=== PATIENT | male | born 1940 | race Caucasian/White ===

== ENCOUNTER 2017-05-21 10:33 | Outpatient (CLI) | payer MEDICARE ==
[~2017-05-21] VITALS: Ht 172.7 cm; Wt 85.0 kg
--- NOTE | ~2017-05-21 | HEMODYNAMI ---
PATIENT:EDISON BALTAZAR MEDICAL RECORD: [id number] : 42 LOCATION:[facility] ADMISSION DATE: 05/21/17 Generatedon:05/21/201714:20 Patient name: EDISON BALTAZAR Patient #: [id number] SSN: : 1940 Date of study: 05/21/2017 Page: Of Hemodynamic Procedure Report Patient Data Patient Demographics Procedure consent was obtained First Name: EDISON Gender: Male Last Name: DELANEY : 1940 Middle Initial: G Age: 76 year(s) Patient #: [id number] Race: Unknown Additional ID: [id number] Contact details [address]: [address] [place] [address] State: [place] City: [place] Zip code: [address] Past Medical History Allergies Allergen Reaction Date Comments Reported Other allergy 05/21/2017 Atorvastatin, Iodinated Contrast, Simvastatin Admission Admission Data Admission Date: 05/21/2017 Admission Time: 10:33 Admit Source: Other Lab Results Lab Result Date: 05/21/2017 Lab Result Time: 0:00 Biochemistry Name Units Result Min Max BUN mg/dl 28 --(----)-* 7 18 Creatinine mg/dl 1.4 --(----)*- 0.6 1.3 CBC Name Units Result Min Max Hemoglobin g/dl 13.4 -*(----)-- 13.5 17.5 Procedure Procedure Types Cath Procedure Diagnostic Procedure C LH w/Coronaries Miscellaneous Procedures Moderate Sedation up to 45 minutes Procedure Description Procedure Date Procedure Date: 05/21/2017 Procedure Start Time: 13:39 Procedure End Time: 14:20 Procedure Staff Name Function Juan To MD Performing Physician Sanjeev Lu RT Scrub Kehinde Greene RN Nurse Henry Paul RT Monitor Gabbivalentine Padron RT Scrub Blake Tabares RT Monitor Procedure Data Cath Procedure Fluoroscopy Diagnostic fluoroscopy Total fluoroscopy Time: 9.1 time: 9.1 min min Diagnostic fluoroscopy Total fluoroscopy dose: dose: 1011 mGy 1011 mGy Contrast Material Contrast Material Type Amount (ml) Isovue 300 105 Entry Location Entry Primary Successful Side Size Upsize Upsize Entry Closure Mccann ccessful Closure Location (Fr) 1 (Fr) 2 (Fr) Remarks Device Remarks Radial Right 6 Fr Mechanical artery Short Compression Estimated blood loss: 10 ml Diagnostic catheters Device Type Used For End Catheter Placement Terumo 5Fr Desmond 110cm Procedure catheter Procedure Complications No complications Procedure Medications Medication Administration Route Dosage Oxygen NC 2 l/min Heparin Flush Bag added to field 2 bags (1000units/500ml NS) 0.9% NaCl I.V. 100 ml/hr Radial Cocktail added to field 1 syringe (Verapomil 2mg/Nitro 400mcg/Heparin 1500units) Fentanyl I.V. 50 mcg Versed I.V. 1 mg Radial Cocktail added to field 1 syringe (Verapomil 2mg/Nitro 400mcg/Heparin 1500units) Fentanyl I.V. 50 mcg Versed I.V. 1 mg Heparin Bolus I.V. 8500 units Fentanyl I.V. 50 mcg Fentanyl I.V. 50 mcg Hemodynamics Rest Heart Rate: 53 (bpm) Pressure Samples Time Site Value (mmHg) Purpose Heart Use Rate(bpm) 13:40 LV 112/4,11 Snapshot 53 Gradients Valve Time Site Site Mean SEP/DFP Peak To Heart Use 1 2 (mmHg) (sec/min) Peak Rate (mmHg) (bpm) Aortic 13:41 LV AO 81 Snapshots Pre Cath Intra NCS Post Cath Vital Signs Time Heart Resp SPO2 etCO2 IF2jhyd NIBP (mmHg) Rhythm Pain Sedation Rate (ipm) (%) (mmHg) (mmHg) Status Level (bpm) 13:23:18 52 17 97 0 0 182/80(147) NSR 0 (11) 10(A) , No pain 13:27:50 49 16 98 0 0 170/77(141) NSR 0 (11) 10(A) , No pain 13:32:21 51 19 99 0 0 142/69(122) NSR 0 (11) 10(A) , No pain 13:36:31 54 16 90 0 0 138/70(115) NSR 0 (11) 9(A) , No pain 13:40:53 52 18 85 0 0 105/57(69) NSR 0 (11) 9(A) , No pain 13:44:58 55 19 92 0 0 114/66(99) NSR 0 (11) 9(A) , No pain 13:49:08 57 19 95 0 0 131/66(86) NSR 0 (11) 9(A) , No pain 13:53:26 57 18 92 0 0 114/62(96) NSR 0 (11) 9(A) , No pain 13:57:36 55 18 97 0 0 133/64(112) NSR 0 (11) 9(A) , No pain 14:01:52 58 16 97 0 0 126/67(110) NSR 0 (11) 9(A) , No pain 14:06:08 53 18 99 0 0 142/62(115) NSR 0 (11) 9(A) , No pain 14:11:17 52 17 95 0 0 112/56(88) NSR 0 (11) 9(A) , No pain 14:15:25 52 17 95 0 0 132/67(104) NSR 0 (11) 9(A) , No pain 14:19:39 55 11 98 0 0 137/72(116) NSR 0 (11) 9(A) , No pain Medications Time Medication Route Dose Verified Delivered Reason Notes Effectiveness by by 13:19:27 Oxygen NC 2 l/min Kehinde Busby Per Jc Greene RN physician RN 13:21:45 Heparin Flush added 2 bags Kehinde Busby used for Bag to Jc Greene finish repairer (1000units/500ml field RN NS) 13:21:54 0.9% NaCl I.V. 100 Kehinde Busby Per ml/hr Jc Greene RN physician RN 13:22:04 Radial Cocktail added 1 Kehinde Kehinde used for (Verapomil to syringe Jc Greene RN procedure 2mg/Nitro field RN 400mcg/Heparin 1500units) 13:35:07 Fentanyl I.V. 50 mcg Kehinde Busby for sedation Jc Greene RN RN 13:35:16 Versed I.V. 1 mg Kehinde Busby for sedation Jc Greene RN RN 13:38:31 Radial Cocktail added 1 Kehinde Juan for (Verapomil to syringe Jc To MD vasodilation 2mg/Nitro field RN 400mcg/Heparin 1500units) 13:50:05 Fentanyl I.V. 50 mcg Kehinde Busby for sedation Jc Greene RN RN 13:50:10 Versed I.V. 1 mg Kehinde Busby for sedation Jc Greene RN RN 13:50:27 Heparin Bolus I.V. 8500 Kehinde Kehinde used for units Jc Greene finish repairer RN 14:05:44 Fentanyl I.V. 50 mcg Kehinde Kehinde for sedation Jc Greene RN RN 14:07:30 Fentanyl I.V. 50 mcg Kehinde Busby for sedation Jc Greene RN head filter tank tender helper Log Time Note 13:00:56 Sanjeev Lu RT(R) sent for patient. Start room use. 13:08:26 Informed consent obtained and on chart 13:08:32 Admit Source: Other 13:08:55 Diagnostic Cath status Elective 13:08:57 Time tracking: Regular hours 13:09:00 Plan of Care:Hemodynamics will remain stable., Cardiac rhythm will remain stable., Comfort level will be maintained., Respiratory function will remain adequate., Patient/ family verbilizes understanding of procedure., Procedure tolerated without complication., Recovers from procedure without complications.. 13:09:10 H&P Date Dictated: 05/17/2017 Within 30 days and on chart., H&P Addendum completed by physician on day of procedure. (MUST COMPLETE FOR ALL OUTPATIENTS). 13:14:05 Patient received from Pre/Post Procedure Room to CCL 1 Alert and oriented. Tansferred to table in Supine position. 13:14:08 Warm blankets applied, and mónica hugger turned on for patient comfort. 13:14:09 Correct patient and procedure confirmed by team. 13:14:09 ECG and BP/O2 sat monitors applied to patient. 13:14:11 Pre-procedure instructions explained to patient. 13:14:12 Pre-op teaching completed and patient verbalized understanding. 13:14:13 Family in waiting room. 13:14:15 Patient NPO since Midnight. 13:15:16 Patient allergic to Other allergyAtorvastatin, Iodinated Contrast, Simvastatin 13:15:18 Is the patient allergic to Iodine/contrast media? Yes. 13:15:19 Was the patient premedicated? Yes 13:19:27 Oxygen 2 l/min NC was administered by Kehinde Greene RN; Per physician; 13:21:20 Vital chart was started 13:21:45 Heparin Flush Bag (1000units/500ml NS) 2 bags added to field was administered by Kehinde Greene RN; used for procedure; 13:21:54 0.9% NaCl 100 ml/hr I.V. was administered by Kehinde Greene RN; Per physician; 13:22:04 Radial Cocktail (Verapomil 2mg/Nitro 400mcg/Heparin 1500units) 1 syringe added to field was administered by Kehinde Greene RN; used for procedure; 13:29:33 Is patient on blood thinner?No 13:30:24 Patient diabetic? No. 13:30:32 ----Pre-sedation anethsthesia assessment.---- 13:30:36 Previous problem with sedation/anesthesia? No ? 13:30:39 Snore? Yes 13:30:41 Sleep apnea? No 13:30:43 Deviated septum? No 13:30:44 Opens mouth fully? Yes 13:30:45 Sticks out tongue? Yes 13:30:48 Airway obstruction? No ? 13:30:52 Dentures? No ? 13:31:14 Pre procedure: right dorsailis pedis pulse 1+ Palpable, but thready & weak; easily obliterated 13:31:33 Patient pain scale 0/10 ?. 13:31:53 IV patent on arrival in left wrist with 0.9% NaCl at [facility]. 13:32:51 Lab Result : BUN 28 mg/dl 13:32:51 Lab Result : Creatinine 1.4 mg/dl 13:32:51 Lab Result : Hemoglobin 13.4 g/dl 13:34:26 Lab results completed and on chart. 13:34:33 Right Radial & Right Groin area was prepped with chlora-prep and draped in sterile fashion 13:34:35 Alarms reviewed by R. N. 13:34:36 Sharps counted by scrub and verified by R.N. 13:34:37 Physician arrived 13:34:38 --------ALL STOP TIME OUT------ 13:34:38 Final Timeout: patient, procedure, and site verified with staff and physician. All members of the team are in agreement. 13:34:42 Right Radial & Right Groin site verified by team. 13:34:46 Physical assessment completed. ASA score P 2 - A patient with mild systemic disease as per Juan To MD. 13:34:50 Sedation plan: IV Moderate Sedation Versed, Fentanyl 13:35:07 Fentanyl 50 mcg I.V. was administered by Kehinde Greene RN; for sedation; 13:35:15 Use device set Radial Dx 13:35:16 Versed 1 mg I.V. was administered by Kehinde Greene RN; for sedation; 13:35:16 Acist Syringe opened to sterile field. 13:35:17 Medline Cath Pack opened to sterile field. 13:35:17 Bag Decanter opened to sterile field. 13:35:18 Terumo 6Fr Slender Glidesheath opened to sterile field. 13:35:18 St Saleem 260cm J .035 wire opened to sterile field. 13:35:19 Acist Hand Control opened to sterile field. 13:35:20 Cook 21G 4cm Radial Needle opened to sterile field. 13:35:20 Acist Manifold opened to sterile field. 13:35:20 Tegaderm 4 x 4 opened to sterile field. 13:35:21 MBrace Wrist Support opened to sterile field. 13:38:31 Radial Cocktail (Verapomil 2mg/Nitro 400mcg/Heparin 1500units) 1 syringe added to field was administered by Juan To MD; for vasodilation; 13:39:01 Procedure started. 13:39:01 Full Disclosure recording started 13:39:08 Local anesthetic to right radial artery with Lidocaine 2% by Juan To MD.INITIAL ACCESS ONLY 13:39:39 A 6 Fr Short sheath was inserted into the Right Radial artery 13:40:15 A Terumo 5Fr Desmond 110cm catheter was advanced over the wire and used for Procedure. 13:40:24 Zero performed for pressure channel P1 13:41:03 LV hemodynamics recorded. 13:41:05 LV gram done using IVAN 13:41:25 EF : 55 % 13:42:52 LCA angiography performed. 13:45:37 RCA angiography performed. 13:46:35 Catheter removed. 13:47:17 Logical Lighting BasixCompak Inflation Kit opened to sterile field. 13:47:19 Pantoja BMW [place] 2 J-tip 300cm 0.014 guide wir opened to sterile field. 13:47:19 Medtronic Launcher 6Fr AR 1.0 guide catheter opened to sterile field. 13:47:20 High Pressure Extension Tubing (To) opened to sterile field. 13:48:32 Proceeding to intervention. 13:50:05 Fentanyl 50 mcg I.V. was administered by Kehinde Greene RN; for sedation; 13:50:10 Versed 1 mg I.V. was administered by Kehinde Greene RN; for sedation; 13:50:19 PCI Cath status Elective 13:50:27 Heparin Bolus 8500 units I.V. was administered by Kehinde Greene RN; used for procedure; 13:50:35 Procedure type changed to Cath procedure, Diagnostic procedure, LHC, LHC w/Coronaries, Miscellaneous Procedures, Moderate Sedation up to 45 minutes 13:50:42 6 Fr AR 1 guide catheter was inserted over the wire 13:50:47 BMW wire advanced. 13:51:55 Wire advanced across lesion. 13:54:18 The Mozec Rx 3.5 x 14 balloon was advanced and then removed because of failure to cross lesion 13:58:21 The [place] Sci Ralls 3.5 X 15 balloon was advanced and then removed because of failure to cross lesion 13:59:02 [place] Sci Luge Straight 300cm 0.014 guide wire opened to sterile field. 13:59:14 SECOND WIRE OPENED 13:59:50 ADVANCED FOR DEMARCO SUPPORT 14:02:12 Wire removed. damaged. 14:03:30 [place] Sci Luge Straight 300cm 0.014 guide wire opened to sterile field. 14:04:02 3RD LUGE WIRE ADVANCED. 14:04:18 Wire advanced across lesion. 14:04:27 Baseline sample Acquired. 14:05:44 Fentanyl 50 mcg I.V. was administered by Kehinde Greene RN; for sedation; 14:07:30 Fentanyl 50 mcg I.V. was administered by Kehinde Greene RN; for sedation; 14:13:50 The [place] Sci Ralls 3.5 X 15 balloon was advanced and then removed because of failure to cross lesion 14:13:57 Wire removed. 14:13:57 Wire removed. 14:13:58 Guide catheter removed. 14:14:13 Terumo TR Band Standard opened to sterile field. 14:14:22 Sheath removed intact; hemostasis achieved with Mechanical Compression to the Right Radial artery. 14:14:24 Procedure ended.(Physican Out) 14:15:31 Fluoroscopy time 09.10 minutes. 14:15:35 Flurop Dose total: 1011 14:15:35 Fluoroscopy dose: 1011 mGy 14:15:39 Contrast amount:Isovue 300 105ml. 14:17:02 Sharps counted by scrub and verified by R.N. 14:17:52 TR band inflated with 12cc of air. 14:17:54 Insertion/operative site no bleeding no hematoma. 14:17:56 Post Procedure Pulses reassessed and unchanged 14:17:59 Post-procedure physical assessment completed. ASA score P 2 - A patient with mild systemic disease as per Juan To MD. 14:18:02 Post procedure rhythm: unchanged. 14:18:04 Estimated blood loss: 10 ml 14:18:06 Post procedure instruction explained to patient.Patient verbalizes understanding. 14:18:06 Patient needs reinforcement of post procedure teaching. 14:20:02 Procedure and supply charges have been captured, reviewed, submitted and are correct. 14:20:04 Procedure Complication : No complications 14:20:06 Vital chart was stopped 14:20:08 See physician's report for complete and final results. 14:20:09 Report given to Pre/Post Procedure Room. 14:20:14 Patient transfered to Pre/Post Procedure Room with Stretcher. 14:20:16 Procedure ended. 14:20:16 Full Disclosure recording stopped 14:20:22 End room use (Document Last) Intervention Summary Intervention Notes Time ActionType Lesion and Equipment Action# Pressure Duration Attributes Used 13:54:18 Discard Mozec Rx Balloon 3.5 x 14 balloon 13:58:21 Discard [place] Balloon Sci Ralls 3.5 X 15 balloon 14:13:50 Discard [place] Balloon Sci Ralls 3.5 X 15 balloon Device Usage Item Name Manufacture Quantity Catalog Number Hospital Part Current Mini mal Lot# / Charge Number Stock Stock Serial# Code Acist Acist 1 [id number] 650378 [id number] 20 Syringe Medical Systems Inc Medline Cardinal 1 [id number] [id number] 79017 008794 5 Cath Pack Health Bag Microtek 1 2001S 066819 78667 271441 5 DecTechflakesGB Medical Inc. Terumo 6Fr Terumo 1 [id number] 669205 964464 [address] Sale[address] St Saleem 1 087917 014140 800224 378652 30 260cm J .035 wire Acist Hand Acist 1 23939 548994 552004 088056 5 Control Medical Systems Inc Acist Acist 1 25924 791031 250517 493414 5 Manifold Medical Systems Inc Tegaderm 4 3M 1 1626W 171333 784455 416125 5 x 4 MBrace Advanced 1 140-0250-00 346373 74226 177674 5 Wrist Vascular Support Dynamics Terumo 5Fr Terumo 1 405023 645602 904140 950284 5 Desmond 110cm catheter Merit Merit 1 [id number] 316528 716948 633232 15 BasixCompak Medical Inflation Kit Pantoja BMW Pantoja 1 [id number] 159009 585285 743575 5 [place] 2 Vascular J-tip 300cm 0.014 guide wir Medtronic Medtronic 1 [id number] 064620 57994 103975 1 Launcher 6Fr AR 1.0 guide catheter High Merit 1 [id number] 643316 05569 741439 10 Pressure Medical Extension Tubing (To) Mozec Rx Cardinal 1 [id number] 499332 08294 076391 5 3.5 x 14 Health balloon [place] Sci [place] 1 [id number] 456522 240762 112230 1 Ralls Scientific 3.5 X 15 balloon [place] Sci [place] 2 [id number] 480964 282935 190036 5 Luge Scientific Straight 300cm 0.014 guide wire Terumo TR Terumo 1 [id number] 579718 595380 188341 40 Band Standard Cook 21G Triggit 1 [id number] 074223 023203 259043 5 4cm Radial Needle Signature Audit Gunpowder Stage Time Signature Unsigned Intra-Procedure 05/21/2017 Henry Paul 2:20:51 PM RT(R) Signatures Monitor : Henry Paul RT Signature : Date : Time : Monitor : Blake Tabares RT Signature : Date : Time : [address] [place] [address]
[~2017-05-21 10:33] MED LIST: ASPIRIN 81 MG E81 MG PO; BYSTOLIC10 MG PO; CATAPRES0.2 MG PO; PLAVIX75 MG PO; ZYLOPRIM300 MG PO
[2017-05-21] MEDS ORDERED: ISOSORBIDE MONO30 M1 PO (11:13)
[2017-05-21] MEDS ORDERED: TOPROL XL25 MG PO (11:13)
[2017-05-21] MEDS ORDERED: PREDNISONE20 MG PO (11:13)
[2017-05-21 11:18] LABS: BASOPHILS 0.1 % (0-2); EOSINOPHILS 0.1 % (0-7); HEMOGLOBIN 13.4 g/dL (13.5-17.5); IMMATURE GRANULOCYTES 0.2 % (0-5); LYMPHOCYTES 11.5 % (15-50); MCH 32.7 pg (26.0-34.0); MCHC 33.5 g/dL (31.0-37.0); MCV 97.6 fL (80.0-100.0); MEAN PLATELET VOLUME 9.9 fL (7.4-10.4); NEUTROPHILS 83.1 % (40-80); RDW 12.3 % (11.5-14.5); WBC 9.8 10x3/uL (4.8-10.8)
[2017-05-21 11:20] LABS: PLATELET COUNT 206 10x3/uL (130-400)
[2017-05-21 11:21] VITALS: BP 151/70; Ht 172.7 cm; Wt 85.0 kg
[2017-05-21 11:28] LABS: ANION GAP 7.2 mmol/L (8-16); CALCIUM 8.7 mg/dL (8.5-10.1); CARBON DIOXIDE 29.8 mmol/L (21.0-32.0); CREATININE - SERUM 1.4 mg/dL (0.6-1.3)
--- NOTE | 2017-05-21 14:45 | NUR ---
TR BAND TO RIGHT WRIST- CDI, NO BLEEDING AT SITE, CAP REFILL BRISK. AT SIDE -DENIES NEEDS.
--- NOTE | 2017-05-21 15:15 | NUR ---
SANDWICH AND WATER SERVED, FAMILY AND FRIENDS AT SIDE, DENIES NEEDS, VSS
--- NOTE | 2017-05-21 18:05 | NUR ---
ALL AIR OUT OF TR BAND- NO BLEEDING AT SITE- NO HEMATOMA. IV D'C WITH CATH TIP INTACT- 500CC NS INFUSED.
--- NOTE | 2017-05-21 18:19 | NUR ---
WRITTEN AND VERBAL D'C INSTRUCTIONS GIVEN TO PT - VERBAL UNDERSTANDING NOTED. TR BAND OFF-BRACE REAPPLIED, BANDAID IN PLACE
--- NOTE | 2017-05-21 18:33 | NUR ---
D'C WITH FRIEND DRIVING. DENIES FURTHUR NEEDS
== END 2017-05-21 18:30 | disposition home or self-care (01) ==
LOC: D.CATH 10:33
PROVIDERS: Internal Medicine Cardiovascular Disease
DX: I25.119 Atherosclerotic heart disease of native coronary artery with unspecified angina pectoris (principal); T82.855A Stenosis of coronary artery stent, initial encounter; Z01.812 Encounter for preprocedural laboratory examination

== ENCOUNTER → 2017-05-31 12:02 | Outpatient (CLI) | payer MEDICARE ==
[2017-05-21 11:21] VITALS: BMI 28.4
[~2017-05-31 12:02] MED LIST changes: +ISOSORBIDE MONO30 M1 PO; +PREDNISONE20 MG PO; +TOPROL XL25 MG PO
[2017-06-01 11:17] LABS: HEPATITIS C ANTIBODY <0.1 (0.0-0.9)
== END | disposition home or self-care (01) ==
LOC: D.LAB 12:02 → D.US 16:00
PROVIDERS: Internal Medicine Cardiovascular Disease
DX: I65.23 Occlusion and stenosis of bilateral carotid arteries (principal); Z01.812 Encounter for preprocedural laboratory examination

== ENCOUNTER 2017-06-09 07:30 | Inpatient (IN) | payer MEDICARE ==
--- NOTE | 2017-06-05 12:51 | HP ---
PATIENT: EDISON BALTAZAR MEDICAL RECORD: [id number] ACCOUNT: [id number] LOCATION:[facility] : 41 ADMISSION DATE: 06/09/17 HISTORY AND PHYSICAL EXAMINATION EDISON Connor (76yo, M) ID# [id number]. Date/Time05/31/2017 10:64KMCPG63/1941Service Dept.NPP_[facility] ClinicProviderEDCHRISTIAN RASCON MDInsuranceMed Primary: HUMANA (MEDICARE REPLACEMENT/ADVANTAGE - PPO) Insurance # : [id number] Policy/Group # : [id number] PCP : SONJA POPE Referring Provider Name : SONJA POPE Employer Name : UNKNOWN Med : [employer]NA (MEDICARE REPLACEMENT/ADVANTAGE - HMO) Insurance # : [id number] Policy/Group # : [id number] PCP : SONJA POPE Referring Provider Name : SONJA POPE Employer Name : UNKNOWN Prescription: ARGSDIR - Member is eligible. Chief Complaint Coronary artery disease Patient's Care Team Primary Care Provider (): SONJA POPE: [address] [facility] [facility] , [address], [place] [address], , Referring Provider (): SONJA POPE: [address] , [address], [place] [address], , Sales Training Coordinator: KAIN TO: [address] [place] [id number], , Patient's Pharmacies [facility] MAIL DELIVERY (MAIL-ORDER, ERX): [address] [facility] [address], , [facility] (ERX): [address] [address], , Vitals BP:172/84 sitting R arm 05/31/2017 10:50 am 168/80 sitting L arm 05/31/2017 10:51 amBP Cuff Size:adult 05/31/2017 10:50 am adult 05/31/2017 10:51 amHR:56.reg 05/31/2017 10:52 amHt:5 ft 8 in 05/31/2017 10:43 amWt:182 lbs 05/31/2017 10:52 amNotes:states "really havan't had any symptoms. Last 2015 had a heart attack, but it felt like a really bad case of heartburn. Then i got really weak so I went to the ER and it was a heart attack and I had two stents placed. So about a month ago I was walking and had a bout of " heartburn", so I saw Dr To and had a cath. He found a 80-90% blockage, and w asn't able to get through to it. He said my best option was bypass." 05/31/2017 10:54 amBMI:27.7 05/31/2017 10:52 amAllergies Reviewed Allergies ATORVASTATINIODINATED CONTRAST- ORAL AND IV DYE: Other (Severe)SIMVASTATINMedications Reviewed Medications Aspir- enteredLanora BuentelloFish Oil 1,000 mg (120 mg-180 mg) capsule Take by oral route.05/31/17 Murray HuFluzone Quad [id number] (PF) 60 mcg (15 mcg x 4)/0.5 mL IM aintamy66/20/15 [facility] CenterEvolution Mobile PlatformKenalog 40 mg/mL suspension for injection Take 2 mL as needed by injection route as needed for 1 day.05/05/17 Ben Simentaletoprolol succinate ER 25 mg tablet,extended release 24 hr02/22/17 filledValley HospitalDaily Aisle SystemsMiralax 17 gram/dose oral powder Take by oral route. Internal Note: takes 2/3 dose05/31/17 Murray Humultivit p-sahktwck-zmztrr complex no.217 capsule Take 1 capsule(s) every day by oral route.07/23/15 Erum Pope MDVaccines Reviewed Vaccines Vaccine TypeDateAmt.RouteSiteLot #Mfr.Exp. DateDate on VISVIS GivenVaccinatorDiphtheria, Tetanus, JxrpmgbqnYegm81/13/06Hepatitis [facility] A-Hep B03/30/11Hepatitis ep A-Hep B012/31/10Influenzainfluenza, high dose obacqkfs39/23/15Meningococcalmeningococcal B, OMV09Pneumococcalpneumococcal polysaccharide [id number], ddvxbbmtki22/24/10Yellow Feveryellow HISTORY AND PHYSICAL [id number] EDISON BALTAZAR [id number] Reviewed Problems Basal cell carcinoma of skin Gout Primary gout Peripheral nerve disease Essential hypertension Coronary arteriosclerosis - Onset: 05/26/2017 Conduction disorder of the heart Non-neoplastic nevus Allergic rhinitis Exacerbation of asthma Actinic keratosis Ingrowing nail Spasm Fibromyositis Chronic hoarseness Dyspnea Respiratory symptom Hyperglycemia Hyperuricemia Sprain of shoulder and upper arm Strain of knee Neck sprain Thoracic back sprain Family History Discussed Family History Father- Malignant neoplastic disease - CABGMother- Diabetes mellitus - Cerebrovascular accidentMaternal Grandfather- Heart diseaseSocial History Discussed Social History General 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 Education: Post Graduate Marital status: Sexual orientation: Heterosexual Exercise level: Moderate Diet: Regular General stress level: Low Smoking Status: Former smoker (Notes: quit 1965) Smoker (1/2 PPD) (Notes: 2 years) Alcohol intake: None Caffeine intake: Occasional Chewing tobacco: none Guns present in home: Y Seat belts used routinely: Y Sunscreen used routinely: Y Smoke alarm in home: Y Is blood transfusion acceptable in an emergency?: Y Surgical History Reviewed Surgical History Cataract surgery complex - 2014 Anesth knee area surgery - 2013 Perq stent/chest vert art - 2012 Perq stent/chest vert art - 2011 Cancer Surgery - 09/2006 - brakytherapy for prostate cancer Carotid Endarterectomy - 03/2000 Other - 1960 - Appendectomy Past Medical History Discussed Past Medical History Cancer: Y - prostate Coronary Artery Disease: Y Diabetes: Y Heart Disease: Y High Blood Pressure: Y Joint Pain or Swelling: Y Peripheral Vascular Disease (PVD): Y - carotid artery disease Stroke: Y - tia Notes: gout, dyslipidema, glucose intolerance Documents for Discussion N/A Screening None recorded. HPI HISTORY AND PHYSICAL [id number] EDISON BALTAZAR Coronary Artery Disease F/U Reported by patient. Severity: no chest discomfort with daily activities; has not needed to use Nitroglycerin Context: non-smoker Associated Symptoms: presents as heartburn, has had only one episode since stent placement coronary artery disease History of pericarditis ROS Patient reports chest pain on exertion but reports no arm pain on exertion, no shortness of breath when walking, no shortness of breath when lying down, no palpitations, and no known heart murmur; "heartburn". He reports shortness of breath but reports no cough, no wheezing, and no coughing up blood. He reports arthralgias/joint pain but report s no muscle aches, no muscle weakness, no back pain, and no swelling in the extremities. He reports no fever, no night sweats, no significant weight gain, no significant weight loss, and no exercise intolerance. He reports no abdominal pain, no vomiting, n ormal appetite, no diarrhea, not vomiting blood, no nausea, and no constipation. He reports no abnormal mole, no jaundice, and no rashes. He reports no depression, no sleep disturbances, feeling safe in relationship, and no alcohol abuse. He reports no fa tigue. He reports no swollen glands and no bruising. He reports no runny nose, no sinus pressure, no itching, no hives, and no frequent sneezing. ROS as noted in the HPI Physical Exam Patient is a 76-year-old male. Constitutional: General Appearance well nourished and developed and healthy-appearing. Level of Distress NAD. Ambulation ambulating normally. Cardiovascular: Apical Impulse not displaced or no thrill. Heart Auscultation normal s1 and s2; no murmurs, rubs, or gallops; and RRR. Arterial Pulses no abdominal aorta bruits, femoral bruits, or popliteal bruits and 2+ bilateral, carotid 2+ bilateral, femoral 2+ bilateral, popliteal 2+ bilateral, and dorsalis pedis 2+ bilateral. Edema no edema or varicosities. Lungs: Repiratory Effort no dyspnea. Percussion no hyperresonance or dullness or flatness. Auscultation no wheezing, rhonchi, or rales / crackles and breathing sounds normal, good air movement, and CTA except as noted. Abdomen: Bowl Sounds normal. Inspection and Palpation no tend erness, guarding, masses, or rebound tenderness and soft and non-distended. Liver non-tender and no hepatomegaly. Spleen non-tender and no splenomegaly. Hernia none palpable. Musculoskeletal System: Gait And Stance normal gait and stance. Digits and Nails normal nails and no cyanosis. Joints, Bones, and Muscles limited ROM. Neurologic: Cranial Nerves grossly intact. Reflexes DTRs 2+ bilaterally throughout. Sensation grossly intact. Lymph Nodes: Lymph Nodes no cervical LAD, supraclavicular LAD, axillary LAD, or inguinal LAD. Eyes: Lids and Conjunctivae no discharge or pallor and non-injected. Pupils PERRLA. Cornea grossly intact. EOM EOMI. Lens clear. Sclerae non-icteric. HISTORY AND PHYSICAL [id number] EDISON BALTAZAR Neck: Neck no masses or enlarged lymph nodes and supple, trachea midline, and carotid bruits (bilateral). Thyroid no enlargement or nodules and non-tender. Skin: Inspection and Palpation no rash, lesions, ulcers, jaundice, or abnormal nevi. Assessment / Plan coronary artery disease History pericarditis Angina pectoris 1. Coronary arteriosclerosis I25.10: Atherosclerotic heart disease of elem coronary artery without angina pectoris ELSA RASCON MD at 1251 CC: [id number] DICTATION DATE: 05/31/17 1015 EGG FACTORY WORKER: DM 06/02/17 1324 PRE IN [facility] [address] [id number]
[~2017-06-09] VITALS: Ht 172.7 cm; Wt 86.5 kg
[2017-06-14 10:46] LABS: APTT 28.7 SECONDS (22.8-39.4); INR 0.93 (0.85-1.17); PROTIME 12.3 SECONDS (11.6-15.0)
[2017-06-14 10:50] LABS: BASOPHILS 0.5 % (0-2); EOSINOPHILS 3.3 % (0-7); HEMATOCRIT 42.4 % (42.0-54.0); HEMOGLOBIN 14.5 g/dL (13.5-17.5); IMMATURE GRANULOCYTES 0.2 % (0-5); MCH 32.9 pg (26.0-34.0); MCHC 34.2 g/dL (31.0-37.0); MCV 96.1 fL (80.0-100.0); MEAN PLATELET VOLUME 9.7 fL (7.4-10.4); PLATELET COUNT 222 10x3/uL (130-400); RBC 4.41 10x6/uL (4.20-6.10); RDW 12.3 % (11.5-14.5); WBC 4.2 10x3/uL (4.8-10.8)
[2017-06-14 10:55] LABS: ANION GAP 12.6 mmol/L (8-16); BILIRUBIN - TOTAL 0.9 mg/dL (0.2-1.3); CALCIUM 9.3 mg/dL (8.5-10.1); CREATININE - SERUM 1.4 mg/dL (0.6-1.3); PHOSPHOROUS 3.5 mg/dL (2.5-4.9); POTASSIUM - SERUM 4.6 mmol/L (3.5-5.1); PROTEIN - SERUM 7.1 g/dL (6.4-8.2); T4 THYROXIN - FREE 1.16 ng/dL (0.76-1.46); THYROID STIMULATING HORMONE 1.07 uIU/mL (0.36-3.74); URIC ACID 8.4 mg/dL (2.6-7.2)
[2017-06-14 11:05] LABS: APPEARANCE CLEAR (CLEAR); BACTERIA FEW /hpf (NONE SEEN); BILIRUBIN NEGATIVE (NEGATIVE); COLOR YELLOW (YELLOW); EPITHELIAL CELLS RARE /hpf (0-5); GLUCOSE NEGATIVE (NEGATIVE); HYALINE CAST 0-5 /lpf (NONE SEEN); KETONE NEGATIVE (NEGATIVE); LEUKOCYTE ESTERASE NEGATIVE (NEGATIVE); MUCUS <1+ /lpf (NONE SEEN); NITRITE NEGATIVE (NEGATIVE); PROTEIN NEGATIVE (NEGATIVE); UROBILINOGEN NORMAL (NORMAL); WAXY CAST RARE /lpf (NONE SEEN); WHITE CELLS - URINE RARE /hpf (0-5)
[2017-06-14] MEDS ORDERED: FISH OIL 1,0001 CA1 PO (11:18)
[2017-06-14 11:53] LABS: COLD SCREEN @ 4 DEGREES 3+ (NEGATIVE); COLD SCREEN ROOM TEMP NEGATIVE (NEGATIVE)
[2017-06-15] VITALS (35 sets, daily range): BP systolic 99–166; BP diastolic 46–81; BMI 27.7; BMI 29.7
[2017-06-15 08:15] LABS: PLT FUNCT.(P2Y12) PLAVIX 279 PRU (194-418)
[2017-06-15 14:53] LABS: MCH 32.4 pg (26.0-34.0); MCHC 34.8 g/dL (31.0-37.0); MEAN PLATELET VOLUME 9.6 fL (7.4-10.4); RDW 11.9 % (11.5-14.5); WBC 5.1 10x3/uL (4.8-10.8)
[2017-06-15 15:05] LABS: HEMATOCRIT 23.3 % (42.0-54.0); HEMOGLOBIN 8.1 g/dL (13.5-17.5); MCV 93.2 fL (80.0-100.0); PLATELET COUNT 83 10x3/uL (130-400)
[2017-06-15 15:06] LABS: APTT 45.9 SECONDS (22.8-39.4); CARBON DIOXIDE 31.3 mmol/L (21.0-32.0); CHLORIDE - SERUM 115 mmol/L (98-107); GLUCOSE 138 mg/dL (74-106); INR 2.05 (0.85-1.17); PROTIME 23.1 SECONDS (11.6-15.0); SODIUM 155 mmol/L (136-145)
[2017-06-15 15:22] LABS: ALBUMIN 1.7 g/dL (3.4-5.0); CALC OSMOLALITY 312 mosm/kg (275-300); CREATININE - SERUM 0.8 mg/dL (0.6-1.3); POTASSIUM - SERUM 3.8 mmol/L (3.5-5.1); UREA NITROGEN 23 mg/dL (7-18); eGFR NON AFRICAN AMERICAN > 90 mL/min (90-120)
[2017-06-15 15:23] LABS: CALCIUM 5.5 mg/dL (8.5-10.1)
[2017-06-15 15:49] LABS: PLATELET ESTIMATE DECREASED
--- NOTE | 2017-06-15 16:42 | NUR ---
1530 PATIENT ARRIVED TO CVICU VIA BED WITH HEART TEAM AT SIDE. SWITCHED TO CVICU MONITORS. RESTRAINED, OGT REMOVED AND REPLACED TO LIS. A/P/L CHEST TUBES PLACED TO 20CM SUCTION. HEELS BRIDGED USING PILLOWS. SCD'S APPLIED. 1620 DR. RASCON AT BEDSIDE WITH FAMILY DISCUSSING SURGERY. FAMILY VERBALIZED UNDERSTANDING.
--- NOTE | 2017-06-15 17:29 | NUR ---
IMANI WITH RESP AT BEDSIDE. PATIENT AWAKE, SQUEEZING HAND UPON REQUEST. VENT SETTINGS ADJUSTED TO SIMV, 40% RATE 10.
--- NOTE | 2017-06-15 18:14 | NUR ---
SYSTOLIC BP 92 AND TRENDING DOWN. ABG DONE AT BEDSIDE BY RT BATSHEVA. PER DR. RASCON V/O FOR 200CC FLUID BOLUS, 75F ALBUMIN AND 1 GRAM CALCIUM.
--- NOTE | 2017-06-15 19:00 | NUR ---
REPORT RECIEVED. ASSESSMENT COMPLETED. SEE FLOW SHEET FOR FURTHER DETAILS. PT IS ON VENT AND NODS APPROPRIATLY TO COMMUNICATION. PT CHEST TUBES X3 NOTED TO 20CM SUCTION WITH NO LEAKS NOTED. TPM PACING WITH WIRES SECURED TO CHEST. ORAL CARE DONE. WILL CONTINUE 1 ON 1 NURSING CARE.
--- NOTE | 2017-06-15 19:20 | NUR ---
CPAP TRIALS STARTED.
--- NOTE | 2017-06-15 21:00 | NUR ---
DR. RASCON NOTIFIED OF HEART RATE. TPM TO VVI 60 VMA OF 10. CM SINUS TACH.
--- NOTE | 2017-06-15 21:05 | NUR ---
PT EXTUBATED. ON 4L NC. PT EDUCATED ABOUT COUGHING AND DEEP BREATHING. RESTRAINTS DC'D.
--- NOTE | 2017-06-15 22:16 | NUR ---
PT RECIEVING ICE CHIPS NO NAUSEA NOTED. WILL CONTINUE 1 ON 1 NURSING CARE.
--- NOTE | 2017-06-15 23:00 | NUR ---
REASSESMENT COMPLETED. NO ACUTE CHANGES AT THIS TIME. SEE FLOW SHEET FOR DETAILS. PT COMPLAINING OF NAUSEA FROM EATING ICE TOO FAST. PT EDUCATE AND MEDICATED FOR IT. PT POSITIONED FOR COMFORT, WILL CONTINUE 1 ON 1 NURSING CARE.
--- NOTE | 2017-06-15 23:00 | NUR ---
REASSESSMENT COMPLETED. NO ACUTE CHANGES AT THIS TIME. PT HAS GOOD EFFORT IN I.S. OF 1250. PT IS RECIEVING A ICE CHIPS WITH NO NAUSEA NOTED. PT IS ENCOURAGED TO COUGH AND DEEP BREATH. PT IS POSITONED FOR COMFORT, WILL CONTINUE 1 ON NURSING CARE.
[2017-06-16] VITALS (96 sets, daily range): BP systolic 93–138; BP diastolic 37–66; Ht 172.7 cm; Wt 86.5 kg
--- NOTE | 2017-06-16 01:00 | NUR ---
PT RESTING GOOD. PT RECIEVING SMALL SIPS OF WATER TOLERATING WELL. POSITIONED FOR COMFORT, WILL CONTINUE 1 ON 1 NURSING CARE.
--- NOTE | 2017-06-16 03:00 | NUR ---
REASSESSMENT COMPLETED. NO ACUTE CHANGES AT THIS TIME. SEE FLOW SHEET FOR FURTHER DETAILS. PT POSITIONED FOR COMFORT, WILL CONTINUE 1 ON 1 NURSING CARE.
--- NOTE | 2017-06-16 05:00 | NUR ---
RT LEG DRESSING CHANGED PER ORDER. LT SUBCLAVIAN CENTRAL LINE, AND SWAN SRIDHAR DRESSING CHNAGED PER PROTOCOL. FRESH LINENS PROVIDED. PT POSITIONED FOR COMFORT. WILL CONTINUE 1 ON 1 NURSING CARE.
[2017-06-16 06:19] LABS: HEMATOCRIT 27.3 % (42.0-54.0); HEMOGLOBIN 9.7 g/dL (13.5-17.5); MCH 32.6 pg (26.0-34.0); MCHC 35.5 g/dL (31.0-37.0); MCV 91.6 fL (80.0-100.0); MEAN PLATELET VOLUME 9.6 fL (7.4-10.4); RBC 2.98 10x6/uL (4.20-6.10); RDW 13.5 % (11.5-14.5)
[2017-06-16 06:34] LABS: WBC 8.1 10x3/uL (4.8-10.8)
[2017-06-16 06:50] LABS: ANION GAP 13.1 mmol/L (8-16); BILIRUBIN - TOTAL 1.32 mg/dL (0.2-1.3); CARBON DIOXIDE 27.1 mmol/L (21.0-32.0); POTASSIUM - SERUM 4.2 mmol/L (3.5-5.1)
[2017-06-16 06:52] LABS: ALBUMIN 3.3 g/dL (3.4-5.0); CALCIUM 7.7 mg/dL (8.5-10.1); CREATININE - SERUM 1.5 mg/dL (0.6-1.3); PROTEIN - SERUM 4.9 g/dL (6.4-8.2)
--- NOTE | 2017-06-16 07:15 | NUR ---
REPORT RECIEVED FROM CARDIAC CARE NURSE NURSE. PT RESTING IN BED QUIETLY. FULL ASSESSMENT COMPLETE PER FLOWSHEET.VSS AT THIS TIME. NO S/SX OF ACUTE DISTRESS MOTED AT THIS TIME. WILL CONT 1:1 CARE.
--- NOTE | 2017-06-16 09:00 | NUR ---
SON AT BEDSIDE. UPDATE PROVIDED.
--- NOTE | 2017-06-16 11:00 | NUR ---
REPOSITIONED FOR COMFORT. FRESH ICE WATER PROVIDED. DENIES FURTHER NEEDS. WILL CONT TO ASSESS.
--- NOTE | 2017-06-16 11:14 | NUR ---
* Is the patient Alert and Oriented? Yes 0 * How many steps to enter\exit or inside your home? 3 0 * PCP Dr. Sena 0 * Pharmacy [facility] 0 * Preadmission Environment Home with Family 0 * ADLs Independent 0 * List name and contact numbers for known caregivers / representatives who currently or will assist patient after discharge: Spouse - Radha [phone] or [phone] Son - Eric [phone] [facility] [phone] 0 * Additional services required to return to the preadmission environment? No 0 * Can the patient safely return to the preadmission environment? Yes 0 * Has this patient been hospitalized within the prior 30 days at any hospital? No Patient Name: EDISON BALTAZAR Admission Status: Elective Accout number: [id number] Admission Date: 06-15-2017 : 1940 Admission Diagnosis:ATHSCL HEART DISEASE OF [place] ART W UNSP ANG PCTRS Attending: ELSA RASCON Current LOS: 1 Anticipated DC Date: 06-22-2017 Planned Disposition: Home Primary Insurance: HUMANA CHOICE PPO [facility] Discharge Planning Comments: CM met with patient to assess dc plans/needs. Patient states he lives at home with his . He reports he is independent with all ADL's & IADL's. He has not had home health services in the past. At dc, he plans to return home with his . No needs identified or verbalized at this time. CM will follow & assist as needed. Food Stand Manager: Miriam Meyer
--- NOTE | 2017-06-16 12:00 | NUR ---
SON AT BEDSIDE. UPDATE PROVIDED.
--- NOTE | 2017-06-16 14:00 | NUR ---
TURNED AND REPOSITIONED. VSS AT THIS TIME. WILL CONT 1:1 CARE.
--- NOTE | 2017-06-16 15:00 | NUR ---
REASSESSMENT COMPLETE PER FLOWSHEET. NO CHANGES NOTED AT THIS TIME. SON AT BEDSIDE FOR VISITATION.
--- NOTE | 2017-06-16 18:00 | NUR ---
INSULIN GTT TURNED ON AT ONE UNIT/HR. WILL RECHECK BS IN 30 MINS.
--- NOTE | 2017-06-16 19:20 | NUR ---
REPORT REC'D AND CARE ASSUMED, REC'D PT ON O2 @ 1 LITER, AWAKE, ALERT, ORIENTED X 3, PT HAS TROUBLE THINKING OF THE WORD HE IS WANTING TO SAY, RAFAL WALLER DRSG CDI WITH MANNIFOLD TO PROXIMAL INFUSION WITH PLASMALYTE @ 100CC/HR AND 1 UNIT/HR, LDLSCL DRSG CDI BURETROL @ 10CC/HR AND NITROGLYCERIN @ 0.5MCG/KG/MIN OR 12.3CC/HR, MIDSTERNAL DRSG CDI, RIGHT RADIAL HOLGER WITH FLEXION BOARD IN USE, LINES LEVELED AND ZEROED WITH RETURN OF APPROPRIATE WAVEFORM, SUBSTERNAL DRSG CDI TO CT'S X 3, CT'S TO 20CM H2O SUCTION, NO AIR LEAK NOTED, SANGUINOUS DRAINAGE PRESENT IN ALL TUBES, EXTERNAL P/M VVI 60 VMA 10, CM-SR @ 96 WITH OCCASIONAL PVC'S, CRITICORE MAR PATENT DRAINING CLEAR YELLOW URINE, BILAT TEDS/SCDS, PPP, PT USING MORPHINE FAMILY RESOURCE MANAGEMENT PROFESSOR FOR PAIN CONTROL 1MG Q10MIN WITH 24MG Q4HR LOCKOUT, FAMILY RESOURCE MANAGEMENT PROFESSOR IN REACH, PT REPOSITIONED UP IN BED AND ONTO RIGHT SIDE SUPPORTED WITH PILLOWS, SR UP X 2, 1:1 NURSING AT BS.
--- NOTE | 2017-06-16 20:50 | NUR ---
EVENING MEDS GIVEN, NO VISITORS IN AT THIS TIME
--- NOTE | 2017-06-16 21:25 | NUR ---
DEEP BREATHING AND COUGHING DONE, PT PULLING [id number] ON IS, PT REPOSITIONED ONTO BACK, SIPS OF WATER PROVIDED, SOLE ROUNDER IN REACH.
--- NOTE | 2017-06-16 23:15 | NUR ---
PT RESTLESS IN BED, PARTIAL LINEN CHANGE PROVIDEDA AND PT REPOSITIONED UP IN BED AND ONTO LEFT SIDE SUPPORTED WITH PILLOW, BILAT ARMS ELEVATED ON PILLOWS, REASSESSMENT COMPLETED, PT REMAINS ORIENTED BUT DIFFICULTY FINDING THE WORD HE WANTS AT TIMES, NITROGLYCERIN WEANED OFF, WILL CONT TO MONITOR FOR CHANGES.
--- NOTE | 2017-06-16 23:28 | NUR ---
RT AT BS AFTER BREATHING TX, PT PULLING 1500 ON IS, NONPRODUCTIVE COUGH NOTED, PT COMPLAINS OF PAIN AT INCISION SITE, ENCOURAGED PT TO USE PACS ADMINISTRATOR NEEDED FOR PAIN, PT USING PACS ADMINISTRATOR BUTTON NOW
[2017-06-17] VITALS (49 sets, daily range): BP systolic 115–139; BP diastolic 50–70
--- NOTE | 2017-06-17 01:00 | NUR ---
PT AWAKE UNABLE TO SLEEP, DENIES PAIN, PT STATES " I DON'T KNOW ABOUT ANYTHING", REMINDED PT OF HEART SURGERY AND EXPLAINED TO PT WHY HE COULD NOT GET OOB, ASSISTED PT WITH TV REMOTE, PT NOW RESTING QUIETLY WATCHING TV, WILL CONT TO MONITOR CLOSELY FOR CHANGES.
--- NOTE | 2017-06-17 03:00 | NUR ---
REASSESSMENT COMPLETED, PT REPOSITIONED IN BED FOR COMFORT.
--- NOTE | 2017-06-17 04:15 | NUR ---
RAADIOLOGY @ BS FOR AM CXR
--- NOTE | 2017-06-17 05:25 | NUR ---
BATH AND LINEN CHANGE PROVIDED WITH CHLORIHEXIDINE WIPES, PT REPOSITIONED UP IN BED AND ONTO LEFT SIDE SUPPORTED WITH PILLOWS, VSS, NITRO CONTINUES AT 0.4MCG/KG/MIN, WILL CONT TO MONITOR FOR CHANGES.
--- NOTE | 2017-06-17 06:00 | NUR ---
NO VISITORS IN AT THIS TIME, PT RESTING IN BED EYES CLOSED, RESP EVEN AND UNLABORED, BP STABLE REMAINS ON NITRO GTT.
[2017-06-17 06:30] LABS: HEMATOCRIT 23.3 % (42.0-54.0); MCH 32.1 pg (26.0-34.0); MCHC 34.3 g/dL (31.0-37.0); MEAN PLATELET VOLUME 9.8 fL (7.4-10.4); RBC 2.49 10x6/uL (4.20-6.10); RDW 13.6 % (11.5-14.5); WBC 8.8 10x3/uL (4.8-10.8)
[2017-06-17 06:31] LABS: MCV 93.6 fL (80.0-100.0)
[2017-06-17 06:41] LABS: ALBUMIN 2.9 g/dL (3.4-5.0); ANION GAP 7.5 mmol/L (8-16); BILIRUBIN - TOTAL 0.9 mg/dL (0.2-1.3); CARBON DIOXIDE 31.7 mmol/L (21.0-32.0); CREATININE - SERUM 1.5 mg/dL (0.6-1.3); POTASSIUM - SERUM 4.2 mmol/L (3.5-5.1); PROTEIN - SERUM 4.8 g/dL (6.4-8.2)
--- NOTE | 2017-06-17 07:15 | NUR ---
REPORT RECIEVED FROM WOOD MACHINIST NURSE. PT RESTING IN BED QUIETLY.
--- NOTE | 2017-06-17 08:00 | NUR ---
PT HAVING A HARD TIME FORMING A SENTENCE. STATES THE MORPHINE IS MAKING HIM CONFUSED. NUEURO CHECKS COMPLETED AND NO CHANGES NOTED FROM PREVIOUS ASSESSMENT. ATTEMPTED REORIENTATION, BUT UNSUCCESSFUL. PT CONTINOUS TO THINK THAT WE ARE "BAD PEOPLE". PT STARTED PRAYING OUT LOUD.
--- NOTE | 2017-06-17 09:00 | NUR ---
DR. RASCON D/C'D LINES. SO, A-LINE, CT'S, PANCHITO DRAINS, AND MAR D/C. NO ISSUES NOTED UPON REMOVAL OF LINES. WILL MONITOR FOR CHANGES.
--- NOTE | 2017-06-17 11:30 | NUR ---
PT AT BEDSIDE TO ASSIST INTO CHAIR. TOLERATED WELL. VS REMAINED STABLE. FRESH ICE WATER PROVIDED. CALL LIGHT IN REACH.
--- NOTE | 2017-06-17 12:00 | NUR ---
SON AT BEDSIDE. UPDATE PROVIDED.
--- NOTE | 2017-06-17 12:22 | TEE ---
PATIENT:EDISON BALTAZAR MEDICAL RECORD: [id number] LOCATION:[place] [address] AGE OF PATIENT: 76 ADMISSION DATE: 06/15/17 SEX: M REFERRING PHYSICIAN: INTERPRETING PHYSICIAN: LIMA MOORE MD TRANSESOPHAGEAL ECHOCARDIOGRAM GARETT CHARGE Y INDICATIONS: CABG PREMEDICATIONS: PATIENT'S RESPONSE PROCEDURE DOPPLER MEASUREMENTS: LVIT LA PA RA LVOT RVOT Asc. Ao AV Gradient Peak AV Mean AV Area MV Gradient Peak MV Mean MV Area INTERPRETATION: Doppler: 2-D: EF 55-60% COLOR FLOW DOPPLER MILD AI/TRACE MR NORMAL SALINE STUDY: MISCELLANOUS: DIAGNOSIS: PLAN: Quality Assurance Lab Technician:2 Dr. To Cell Changer: Benjie SAL COMMENTS: MANAN PATIENT DATE OF SERVICE: 06/15/2017 PROCEDURE: Transesophageal echo evaluation of valvular structures during bypass surgery. FINDINGS: 1. Left ventricular chamber size is within normal limits. Left ventricular systolic function is normal. Overall ejection fraction equals 60%. 2. Left atrium, right atrium and right ventricular chamber sizes are within TRANSESOPHAGEAL ECHOCARDIOGRAM REPORT [id number] EDISON BALTAZAR normal limits. 3. Valvular structures have normal structure and motion. 4. Doppler interrogation reveals mild plus aortic insufficiency, mild mitral regurgitation. No other valvular insufficiency or stenosis. 5. No evidence of pericardial effusion or left ventricular thrombus. TRANSINT:[id number] Voice Confirmation ID: [id number] DOCUMENT ID: [id number] at 1222 CC: [id number] DICTATION DATE: 06/15/17 1535 HOOP BENDING MACHINE OPERATOR: 06/16/17 0131 ADM IN [address] [place] [address]
--- NOTE | 2017-06-17 14:04 | NUR ---
Nutrition Follow Up: Pt is POD 2 CABG. Diet has been advanced to clear liquids. Wt stable. Meds and labs reviewed. Rec continue advancing TOÑITO when medically feasible. RD following.
--- NOTE | 2017-06-17 14:30 | NUR ---
PT AT BEDSIDE TO WALK WITH PT. ASSISTED PT TO BATHROOM. STATED HE NEEDED TO HAVE A BM. PASSES GAS, BUT DID NOT HAVE BM. VOIDED 250CC OF CLEAR YELLOW URINE.
--- NOTE | 2017-06-17 15:00 | NUR ---
CONFUSION HAS IMPROVED. PT APOLOGETIC FOR ACTIONS THIS MORNING. STATED TO PT THAT THERE WAS NO NEED TO APOLOGIZE. PT AWAITING FAMILY FOR VISITATION.
--- NOTE | 2017-06-17 17:07 | NUR ---
ATE 75% OF DINNER. NO NAUSEA REPORTED.
--- NOTE | 2017-06-17 18:00 | NUR ---
SON AT BEDSIDE. UPDATE PROVIDED.
--- NOTE | 2017-06-17 19:00 | NUR ---
1900: Pt rec'd resting HOB 30 degrees with eyes open. Pt pupils JAMES+ bilat. SMCx4=bilat cotton broker. Pt moves x4 extrem vs gravity without difficulty. Pt denies tingling, numbness, or nausea. Pt states he has incisional pain that is increased with DBC, but is "ok right now." Pt breathing 022LNC with RR 15x with SPO2 94%. Encouraged DBC. Lungs clear bilat with decreased bases bilat with auscultation. Pt with strong occasionally productive cough. Pt expectorated small amount of clear sputum. Irregular, Rapid HR UAFIB on CM 120's with SBP 90-100. LDLSC with Neosynephrine gtt infusing titrating to keep SBP >90. Midline sternal incision CDI with distal portion of dressing with TPM wires taped intact TPM VVI 60/0/10 V-Sense. Dressing also with medistinal drain extending from dressing and connected to Atrium collection system @20cm suction. No air leaks detected. Drainage tube with small amount of clear, pink, yellow liquid drainage. Right leg incisions extending from groin to calf. Proximal dressing with small amount of oozing noted. Groin is tight to touch and purple bruising noted. Distal pulse is irregular, but palpable. ABD soft NT BSx4 active. Pt denies difficulty with elimination. SR up x2, call light in reach, all alarms are on and audible.
--- NOTE | 2017-06-17 21:00 | NUR ---
2100: Pt family here and update provided. Verbalized understanding. Pt requests pain medicine at this time for incisional pain. Provided as per EMAR. Pt remains Afib 110-120 wiht SBP 90-100. Reviewed Betapace order at this time. Betapace order given PO. Pt with no difficulty with swallow. No change in TPM settings, remains V-Sensing.
--- NOTE | 2017-06-17 23:00 | NUR ---
2300: Pt resting with eyes closed at this time. Pt remains Afib 110-120 with SBP 90-100. No change in Gabe gtt.
[2017-06-18] VITALS (23 sets, daily range): BP systolic 97–137; BP diastolic 48–65
--- NOTE | 2017-06-18 01:30 | NUR ---
0130: Pt resting in bed with eyes open at this time. Pt with no c/o at this time. Pt remains SR 70's with SBP 110-120's. Pt remains RA RR17x with SPo2 98%. TPM VVI 60/0/10 V-Sense.
--- NOTE | 2017-06-18 02:30 | NUR ---
0230: Pt assisted up OOB and walked approx 60ft. with minimal assistance. Pt balance steady. Pt returned to bed without difficulty. All monitors reestablished and alarms on at this time. Pt remains SR 70's with SBP 110-120. Pt remains RA RR18x with SPO2 94%. Pt uses IS without assistance periodically without prompting. Pt max TV reported 1500cc.
--- NOTE | 2017-06-18 04:30 | NUR ---
0430: Pt assisted up OOB. Standing weight done at this time. Pt placed in WC and taken to radiology for PA/LAT. Pt returned to room and placed back in bed without difficulty. Distal midsternal dressing changed at this time. Multiple small incision sites visible. No bleeding, oozing, or redness. TPM wires intact and anti-bx disc placed. Incisions covered with 4x4's and large tegaderm x2. Right leg incisions changed at this time. Conner intact. No bleeding, oozing, swelling noted. All incisions covered with betadine, 4x4's, and hypafix tape. Pt remains SR 70's on CM with SBP 110-120. Pt remains on RA [id number] with SPO2 96%
--- NOTE | 2017-06-18 06:00 | NUR ---
0600: Pt resting with eyes closed at this time. Pt remains SR 70's on CM with SBP 120-130. Pt remains RA RR12x with SPO2 96%. Pt turns self and performs IS independently.
[2017-06-18 06:35] LABS: HEMATOCRIT 24.2 % (42.0-54.0); HEMOGLOBIN 8.2 g/dL (13.5-17.5); MCH 32.2 pg (26.0-34.0); MCHC 33.9 g/dL (31.0-37.0); MCV 94.9 fL (80.0-100.0); RBC 2.55 10x6/uL (4.20-6.10); RDW 13.1 % (11.5-14.5); WBC 7.7 10x3/uL (4.8-10.8)
[2017-06-18 07:37] LABS: ALBUMIN 2.8 g/dL (3.4-5.0); BILIRUBIN - TOTAL 0.88 mg/dL (0.2-1.3); CALCIUM 8.1 mg/dL (8.5-10.1); CARBON DIOXIDE 29.5 mmol/L (21.0-32.0); CREATININE - SERUM 1.3 mg/dL (0.6-1.3); POTASSIUM - SERUM 4.5 mmol/L (3.5-5.1); PROTEIN - SERUM 5.3 g/dL (6.4-8.2)
--- NOTE | 2017-06-18 19:15 | NUR ---
SHIFT ASSESSMENT COMPLETE, SEE FLOWSHEET FOR DETAILS. VSS, UP TO BATHROOM. GATE STEADY. RETURNED TO BED AND PLACED ON MONITOR. NSR. TPM VVI @ 60, SENSING, WIRES INTACT. WILL MONITOR.
--- NOTE | 2017-06-18 20:30 | NUR ---
NIGHT MEDS GIVEN WITHOUT DIFFICULTY. VSS
--- NOTE | 2017-06-18 22:30 | NUR ---
PATIENT REQUESTED TO GET UP AND WALK BEFORE GOING TO BED. WALKED 200 FEET WITH MINIMAL ASSISST AND STEADY GATE. DENIED WEAKNESS OR DIZZINESS. PLACED BACK ON MONITOR. O2 SAT 98%, NSR ON MONITOR WITH RATE OF 93BPM.
--- NOTE | 2017-06-18 23:00 | NUR ---
REASSESSMENT COMPLETE, SEE FLOWSHEET. NO CHANGES.
[2017-06-19] VITALS (24 sets, daily range): BP systolic 109–136; BP diastolic 46–84
--- NOTE | 2017-06-19 00:30 | NUR ---
UP TO BATHROOM, 200CC OF CLEAR YELLOW URINE VOIDED.
--- NOTE | 2017-06-19 03:00 | NUR ---
REASSESSMENT COMPLETE, SEE FLOWSHEET. NSR ON MONITOR. NO CHANGES.
--- NOTE | 2017-06-19 03:30 | NUR ---
RIGHT LEG DRESSINGS CHANGED. IODINE OINTMENT PLACED ON INCISIONS, EVAN INTACT. COVERED WITH 4X4's, TAPED DOWN. TOLERATED WELL.
--- NOTE | 2017-06-19 05:15 | NUR ---
RESTING IN CHAIR WITH EYES CLOSED. VSS.
[2017-06-19 06:27] LABS: HEMOGLOBIN 8.7 g/dL (13.5-17.5); MCH 32.3 pg (26.0-34.0); MCHC 33.5 g/dL (31.0-37.0); MCV 96.7 fL (80.0-100.0); MEAN PLATELET VOLUME 9.9 fL (7.4-10.4); RBC 2.69 10x6/uL (4.20-6.10); RDW 13.3 % (11.5-14.5); WBC 8.5 10x3/uL (4.8-10.8)
[2017-06-19 06:50] LABS: ANION GAP 11.8 mmol/L (8-16); BILIRUBIN - TOTAL 0.8 mg/dL (0.2-1.3); CALCIUM 8.6 mg/dL (8.5-10.1); CARBON DIOXIDE 29.5 mmol/L (21.0-32.0); CREATININE - SERUM 1.3 mg/dL (0.6-1.3); POTASSIUM - SERUM 4.3 mmol/L (3.5-5.1); PROTEIN - SERUM 5.6 g/dL (6.4-8.2)
--- NOTE | 2017-06-19 08:01 | NUR ---
UP IN CHAIR BESIDE BED AWAKE AT THIS TIME. DENIES ANY NEEDS. NO ACUTE DISTRESS NOTED. WILL CONTINUE PLAN OF CARE.
--- NOTE | 2017-06-19 10:33 | NUR ---
WALKED PT AT THIS TIME DOWN THE SOLORIO ON THE UNIT VIA STAND BY ASSIST. NO ACUTE DISTRESS NOTED. NO SHORTNESS OF BREATH NOTED. ALSO AT THIS TIME NOTED CONTINENT VOID AND BOWEL MOVEMENT. PT UP IN CHAIR AT THIS TIME. DENEIS ANY NEEDS. WILL CONTINUE PLAN OF CARE.
--- NOTE | 2017-06-19 13:24 | NUR ---
WALKED PT AT THIS TIME DOWN SOLORIO VIA STAND BY ASSIST. PT UP IN CHAIR AT THIS TIME. DENEIS ANY NEEDS. WILL CONTINUE PLAN OF CARE.
--- NOTE | 2017-06-19 15:24 | NUR ---
UP IN CHAIR IN ROOM AT THIS TIME, FAMILY AT BEDSIDE. NO ACUTE DISTRESS NOTED. WILL CONTINUE PLAN OF CARE.
--- NOTE | 2017-06-19 17:19 | NUR ---
PT NOTED TO HAVE SINUS RHYTHM WITH SOME PACED GREEN LIGHT BEATS PER PACEMAKER. PER PROTOCOL STAT POTASSIUM LEVEL ORDERED. WAIITNG ON RESULTS THEN WILL NOTIFY DR RASCON. PT SITTING UP IN BED WATCHING TV. DENIES ANY NEEDS. WILL CONTINUE PLAN OF CARE.
--- NOTE | 2017-06-19 18:27 | NUR ---
PER DR RASCON DECREASE VENTRICULAR SENSITIVITY TO 0.5
--- NOTE | 2017-06-19 19:05 | NUR ---
SHIFT ASSESSMENT COMPLETE, PATIENT A&O X4, VSS. TPM SENSING. SEE FLOWSHEET FOR COMPLETE DETAILS. DENIES NEED, CL IN REACH. WILL MONITOR.
--- NOTE | 2017-06-19 20:00 | NUR ---
PATIENT AMBULATED 300 FEET, TOLERATED WELL, STEADY GATE. RETURNED TO BED, NSR ON MONITOR. DENIES NEED.
--- NOTE | 2017-06-19 21:00 | NUR ---
SON AT BEDSIDE.
--- NOTE | 2017-06-19 23:00 | NUR ---
REASSESSMENT COMPLETE, NO ACUTE CHANGES, SEE FLOWSHEET FOR DETIALS. PATIENT AMBULATED TO BATHROOM WITH MINIMAL ASSISST. STEADY GATE.
[2017-06-20] VITALS (24 sets, daily range): BP systolic 105–144; BP diastolic 43–69
--- NOTE | 2017-06-20 01:00 | NUR ---
RESTING WITH EYES CLOSED. NSR ON MONITOR. VSS. CL IN REACH.
--- NOTE | 2017-06-20 03:00 | NUR ---
REASSESSMENT COMPLETE, SEE FLOWSHEET. NSR ON MONITOR. TPM SENSING. VSS. CL IN REACH.
--- NOTE | 2017-06-20 04:30 | NUR ---
TAKEN TO XRAY VIA WHEELCHAIR, RETURNED AND PLACED ON MONITOR. NSR, VSS. LEG DRESSINGS CHANGED.
--- NOTE | 2017-06-20 06:10 | NUR ---
LAB NOTIFIED THAT CENTRAL LINE WOULD NOT DRAW BLOOD.
[2017-06-20 06:44] LABS: HEMATOCRIT 24.2 % (42.0-54.0); MCH 32.3 pg (26.0-34.0); MCHC 33.1 g/dL (31.0-37.0); MCV 97.6 fL (80.0-100.0); MEAN PLATELET VOLUME 9.4 fL (7.4-10.4); RBC 2.48 10x6/uL (4.20-6.10); RDW 13.3 % (11.5-14.5); WBC 6.8 10x3/uL (4.8-10.8)
[2017-06-20 07:00] LABS: ALBUMIN 2.6 g/dL (3.4-5.0); ANION GAP 10.9 mmol/L (8-16); BILIRUBIN - TOTAL 0.72 mg/dL (0.2-1.3); CALCIUM 8.2 mg/dL (8.5-10.1); CARBON DIOXIDE 30.5 mmol/L (21.0-32.0); CREATININE - SERUM 1.4 mg/dL (0.6-1.3); POTASSIUM - SERUM 4.4 mmol/L (3.5-5.1); PROTEIN - SERUM 5.3 g/dL (6.4-8.2)
--- NOTE | 2017-06-20 07:26 | NUR ---
ASSISTED TO TOILET AT THIS TIME. CONTINENT VOID NOTED. PT UP IN BED SHAVING SELF AT THIS TIME. DENIES ANY NEEDS. WILL CONTINUE PLAN OF CARE.
--- NOTE | 2017-06-20 09:21 | NUR ---
UP IN CHAIR VISITING WITH FAMILY AT THIS TIME. NO ACUTE DISTRESS NOTED. PTS FAMILY IS IN ROOM VISITING WITH PT. NO ACUTE DISTRESS NOTED. WILL CONTINUE PLAN OF CARE.
--- NOTE | 2017-06-20 11:12 | NUR ---
WALKED PT UP AND DOWN SOLORIO VIA STAND BY ASSIST. PT HAS STEADY GAIT. NO ACUTE DISTRESS NOTED. WILL CONTINUE PLAN OF CARE.
--- NOTE | 2017-06-20 13:13 | NUR ---
UP IN CHAIR BESIDE BED AT THIS TIME WATCHING TV. DENIES ANY NEEDS. NO ACUTE DISTESS NOTED. WILL CONTINUE PLAN OF CARE.
--- NOTE | 2017-06-20 14:05 | OP ---
PATIENT NAME: EDISON BALTAZAR MEDICAL RECORD: [id number] :42 LOCATION:[facility] ADMISSION DATE:06/15/17 SURGEON: SLOAN SANTIAGO MD DATE OF OPERATION: 06/15/2017 SURGEON: Sloan Santiago MD. ANESTHESIA: General endotracheal, Dr. Ren. OPERATIONS PERFORMED: Aortocoronary artery bypass utilizing left internal thoracic, first diagonal sequential, left anterior descending, reverse saphenous vein segment to the obtuse marginal coronary artery and reverse saphenous vein graft, sequential posterior descending, sequential posterior lateral branch of the right coronary artery. PREOPERATIVE DIAGNOSES: Angina pectoris and severe occlusive coronary artery disease. POSTOPERATIVE DIAGNOSES: Angina pectoris and severe occlusive coronary artery disease. INDICATION FOR OPERATION: Severe occlusive coronary artery disease. FINDINGS AT OPERATION: The right greater saphenous vein graft from his thigh was of excellent quality as was the left internal thoracic artery. The target vessels were also of good quality and caliber. ESTIMATED BLOOD LOSS: Cell Saver was used. DESCRIPTION OF PROCEDURE: After informed consent, adequate preoperative medication and evaluation, the patient was brought to the operating room, placed on the table in the supine position. After induction of general endotracheal anesthesia and application of appropriate monitoring devices, the chest, neck, abdomen, and both legs were prepped and draped in a sterile field, utilizing Betadine scrub, alcohol, and Betadine solution. A Betadine-impregnated drape was also used. Saphenous vein was harvested from right thigh and prepared for reverse saphenous vein grafting. The leg was closed over drains utilizing 3-0 Vicryl and skin rachele. A median sternotomy incision was made and dissection carried down the fascia. Hemostasis maintained with electrocautery. Sternum was divided. Innominate vein was identified and protected. Left internal thoracic was taken down and prepared for grafting. The patient was given a calculated dose of heparin, cannulated in a standard fashion utilizing 1 aortic, one two-stage cannula in the atrium and inferior vena cava. The patient was placed on cardiopulmonary bypass, cooled to 32 degrees centigrade. The patient was given cold cardioplegic solution through the aortic root, through the grafts or a combination of both throughout the procedure. The first vessel to be grafted was the posterolateral branch of the right. It was grafted end-to-side utilizing a running 7-0 Prolene suture. The graft was then measured to the posterior descending and a ocxi-uc-kayv anastomosis fashioned utilizing a running 7-0 Prolene suture. Grafts were measured back to the aorta and a proximal anastomosis fashioned utilizing running 6-0 Prolene suture. Next, the obtuse marginal was grafted end-to-side utilizing a running 7-0 Prolene suture. Graft was measured back to the aorta and a proximal anastomosis fashioned utilizing running 6-0 Prolene suture. Next, the left internal thoracic was brought through a hole in pericardium sutured [id number] to the first diagonal OPERATIVE REPORT [id number] EDISON BALTAZAR utilizing a running 8-0 Prolene suture. Pedicle was attached to the epicardium with a 7-0 Prolene suture. Next, the distal end of the graft was sutured left anterior descending end-to-side utilizing a running 8-0 Prolene suture. The patient was given warm cardioplegic reperfusion and controlled reperfusion. The patient rewarmed to 37 degrees centigrade. Two atrial and 2 ventricular pacing wires were placed on the heart and brought through the epigastric area. The patient was weaned cardiopulmonary bypass. After being stable off bypass, he was given calculated dose of protamine to reverse the heparin. Hemostasis was achieved. A #40 right angle and #36 chest tubes were brought in through the epigastric area and placed in mediastinum. A separate left pleural tube was connected to underwater seal and suction. Chest was again irrigated. Instrument count and sponge count were correct times 2. Chest was closed in layers utilizing #7 wire on the sternum, #2 Vicryl in linea alba and pectoralis fascia. Subcutaneous tissue was approximated with 3-0 Vicryl and skin approximated with 3-0 subcuticular Vicryl. Sterile dressings were applied. The patient tolerated the procedure well and transferred to the [facility] ICU in satisfactory condition. TRANSINT:[id number] Voice Confirmation ID: [id number] DOCUMENT ID: [id number] SLOAN SANTIAGO MD at 1405 CC: [id number] DICTATION DATE: 06/15/17 1514 TECHNICAL SOLUTIONS ENGINEER: 06/15/172010 ADM IN [facility] [address] [place] [address]
--- NOTE | 2017-06-20 15:18 | NUR ---
RESTING IN BED AT THIS TIME. RESPIRATIONS STEADY AND UNLABORED. NO ACUTE DISTRESS NOTED. WILL CONTINUE PLAN OF CARE.
--- NOTE | 2017-06-20 17:14 | NUR ---
UP IN BED WATCHING TV AND EATING SUPPER. DENIES ANY NEEDS. . NO ACUTE DISTRESS NOTED. CALL LIGHT IN REACH. PT NOTIFIES STAFF OF NEEDS. WILL CONTINUE PLAN OF CARE.
--- NOTE | 2017-06-20 17:40 | NUR ---
WALKED PT DOWN THE SOLORIO AT THIS TIME. PT HAS STEADY GAIT. DENIES ANY NEEDS. WILL CONTINUE PLAN OF CARE.
--- NOTE | 2017-06-20 19:30 | NUR ---
REPORT RECIEVED. ASSESSMENT COMPLETED. SEE FLOW SHEET FOR FURTHER DETAILS. PT TPM SENSING AT A RATE OF 50 VMA OF 10 AND SENSITIVITY OF 3.00. PT RESTING IN BED WATCHING TV, WILL CONTINUE TO MONITOR.
--- NOTE | 2017-06-20 21:00 | NUR ---
PT HAS SON AND FRIEND AT BED SIDE. PT STATESHE WANTS TO WALK. HELPED HIM UP AND WALKED 4 LOOPS WITH HIM AND THE VISITORS. PT AMBULATES WITH NO ASSISTANCE. PT HELPED BACK TO BED. WILL CONTINUE TO MONITOR PT.
--- NOTE | 2017-06-20 23:20 | NUR ---
REASSESSMENT COMPLETED. NO ACUTE CHANGES AT THIS TIME. HELPED THE PT USE THE RESTROOM AND BACK IN BED. WILL CONTINUE TO MONITOR.
[2017-06-21] VITALS (15 sets, daily range): BP systolic 103–138; BP diastolic 44–69
--- NOTE | 2017-06-21 01:00 | NUR ---
PT SLLEPING WITH EYES CLOSED. VSS. WILL CONTINUE TO MONITOR.
--- NOTE | 2017-06-21 03:00 | NUR ---
REASSESSMENT COMPLETED. NO CHANGES AT THIS TIME. PT POSITIONED FOR COMFORT WILL CONTINUE TO MONITOR.
--- NOTE | 2017-06-21 04:27 | NUR ---
RT LEG DRESSING CHANGED PER ORDER. AWAITING XRAY.
--- NOTE | 2017-06-21 05:00 | NUR ---
PT RETUURNED FROM XRAY. PT STATED HE WANTED TO WALK. WALKED [address] IN CHAIR. WILL CONTINUE TO MONITOR.
[2017-06-21 07:05] LABS: HEMOGLOBIN 8.5 g/dL (13.5-17.5); MCH 32.3 pg (26.0-34.0); MCHC 32.7 g/dL (31.0-37.0); MCV 98.9 fL (80.0-100.0); MEAN PLATELET VOLUME 9.1 fL (7.4-10.4); RBC 2.63 10x6/uL (4.20-6.10); RDW 13.7 % (11.5-14.5); WBC 7.3 10x3/uL (4.8-10.8)
[2017-06-21 07:22] LABS: ALBUMIN 2.8 g/dL (3.4-5.0); ANION GAP 9.2 mmol/L (8-16); BILIRUBIN - TOTAL 0.8 mg/dL (0.2-1.3); CALCIUM 8.6 mg/dL (8.5-10.1); CARBON DIOXIDE 30.3 mmol/L (21.0-32.0); CREATININE - SERUM 1.4 mg/dL (0.6-1.3); POTASSIUM - SERUM 4.5 mmol/L (3.5-5.1); PROTEIN - SERUM 5.6 g/dL (6.4-8.2)
--- NOTE | 2017-06-21 08:00 | NUR ---
PT UP IN CHAIR AT BEDSIDE. ASKS FOR BATH. PROVIDED WITH BASIN OF WATER AND HIBICLEANS SOAP. FRESH CLOTHS, TOWELS, GOWN AND BLANKET ALSO.
--- NOTE | 2017-06-21 10:24 | NUR ---
PT HAS INTERVENTION PAST DUE OF CHANGE PACEMAKER BATTERY. NO NURSING NOTE OF CHANGE, BUT PACER CASE DATED WITH CHANGE BY "MG" ON 06/20/17
--- NOTE | 2017-06-21 10:46 | NUR ---
CM met with patient - he states he has decided he wants to go to [facility] with his , who is ill. He states he does not think he can care for her at home while he recovers. Initial referral to [facility] was sent yesterday by weekend disability case manager. Spoke with Bruna @ [facility] - she rec'd referral but is requesting PT Notes. They will attempt to obtain insurance authorization for a SNF bed, but unlikely patient will be approved for SNF because he is ambulating well over 500' without assistance. Patient states he plans to private pay for both himself & his if insurance does not authorize bed. He has sent his son, Mayo, to tour facility & arrange private pay. Updated med list & therapy notes faxed to Bruna after [facility] signed. Anticipate discharge today if arrangements can be completed. CM will follow.
[2017-06-21] MEDS ORDERED: HEMOCYTE PLUS C1 CAP PO (11:14)
[2017-06-21] MEDS ORDERED: ULTRAM50 MG PO (11:14)
[2017-06-21] MEDS ORDERED: SENOKOT-S TABLE1 TAB PO (11:15)
[2017-06-21] MEDS ORDERED: COLACE100 MG PO (11:15)
--- NOTE | 2017-06-21 12:43 | NUR ---
PT ASSISTED BACK TO BED PER REQUEST BY [employer] TO PULL LINES. SON WAS AT BEDSIDE ASKING ABOUT DISCHARGE. HE HAS BEEN IN CONTACT WITH RECEIVING FACILITY AND WAS TOLD A TIME OF 2PM. LAST I WAS MADE AWARE OF DISCHARGE, CASE MANAGEMENT WAS STILL AWAITING CONFIRMATION FROM FACILITY.
--- NOTE | 2017-06-21 13:07 | NUR ---
PT HAS HAD LINES REMOVED. PT QUESTIONING DISCHARGE. CALLED LAURO WITH CASE MANAGEMENT. SHE SAYS CALLED FACILITY NO MORE THAN 20 MINUTES AGO, BUT WAS DIRECTED TO VOICE MAIL. LET HER KNOW THAT THE SON WAS TOLD PT WOULD BE ACCEPTED. LAURO CALLING BACK TO GET INFORMATION AND WILL UPDATE ME.
--- NOTE | 2017-06-21 13:29 | NUR ---
Patient Name: EDISON BALTAZAR Encounter No: [id number] : 1940 Primary Insurance: [employer] P[employer] Anticipated DC Date: 06-22-2017 Planned Disposition: Nursing Facility [facility] Cert External Planned Provider: Andres Kaplan DCP follow-up note: Patient has been accepted to a private pay bed at [facility]. Patient notified and pleased with plan. He states his son will drive him to the facility. Notified Dr. Santiago's nurse, KRISTIAN Hernandez - she is agreeable to plan & will get discharge orders entered. Nursing to call report to [phone]. Miriam Meyer
--- NOTE | 2017-06-21 13:53 | NUR ---
DISCHARGE ORDERS RECEIVED. AWAITING CALL FROM DR HERNANDEZ ABOUT DESIRE FOR F/U APPT.
--- NOTE | 2017-06-21 15:02 | NUR ---
DISCHARGE INSTRUCTIONS AND MEDICATIONS REVIEWED WITH PATIENT AND SON. PLACED IN YELLOW EN[facility]ELOPE FOR RECEIVING FACILITY. PT ESCORTED VIA WHEELCHAIR TO AWAITING VEHICLE. ASSISTED INTO TRUCK BY NURSE AND SON. REPORT CALLED TO AND RECEIVED BY FREDRICK MARTINEZ RN. NOTIFIED PT WILL HAVE INSTRUCTIONS IN [facility]LLOW [employer]OPE FOR HER. PHONE NUMBER TO ICU UNIT PROVIDED TO HER SHOULD SHE HAVE ANY ADDITIONAL QUESTIONS.
== END 2017-06-21 15:08 | DRG 236 ==
LOC: D.SDCHOLD 07:30 → D.CVICU 06-15 05:00 → D.SDCHOLD 06-15 07:30 → D.CVICU 06-15 14:17
PROVIDERS: ADMIT Internal Medicine Cardiovascular Disease
PROC: 0212093 Bypass Coronary Artery, Three Arteries from Coronary Artery with Autologous Venous Tissue, Open Approach (ICD-10-PCS; 2017-06-15)
PROC: 06BP0ZZ Excision of Right Saphenous Vein, Open Approach (ICD-10-PCS; 2017-06-15)
PROC: 5A1221Z Performance of Cardiac Output, Continuous (ICD-10-PCS; 2017-06-15)
PROC: 021 Heart and Great Vessels, Bypass (ICD-10-PCS; principal; 2017-06-15 07:30)
DX: I25.119 Atherosclerotic heart disease of native coronary artery with unspecified angina pectoris (principal); I10 Essential (primary) hypertension; E78.5 Hyperlipidemia, unspecified; M10.9 Gout, unspecified; E74.39 Other disorders of intestinal carbohydrate absorption

== ENCOUNTER → 2017-07-15 09:01 | Outpatient (CLI) | payer MEDICARE ==
[2017-06-16 10:56] VITALS: BMI 28.3
[~2017-07-15 09:01] MED LIST changes: +COLACE100 MG PO; +FISH OIL 1,0001 CA1 PO; +HEMOCYTE PLUS C1 CAP PO; +SENOKOT-S TABLE1 TAB PO; +ULTRAM50 MG PO
[2017-07-15 09:29] LABS: HEMOGLOBIN 12.3 g/dL (13.5-17.5); MCH 32.9 pg (26.0-34.0); MCHC 32.4 g/dL (31.0-37.0); MCV 101.6 fL (80.0-100.0); MEAN PLATELET VOLUME 9.7 fL (7.4-10.4); RBC 3.74 10x6/uL (4.20-6.10); RDW 13.7 % (11.5-14.5); WBC 5.1 10x3/uL (4.8-10.8)
[2017-07-15 09:49] LABS: ANION GAP 10.8 mmol/L (8-16); CARBON DIOXIDE 28.4 mmol/L (21.0-32.0); CREATININE - SERUM 1.4 mg/dL (0.6-1.3); POTASSIUM - SERUM 4.2 mmol/L (3.5-5.1)
== END ==
LOC: D.RAD 09:01
PROVIDERS: Internal Medicine Cardiovascular Disease
DX: J90 Pleural effusion, not elsewhere classified (principal); D64.9 Anemia, unspecified

== ENCOUNTER → 2020-03-15 09:19 | Outpatient (CLI) | payer OTHER ==
[2017-06-16 10:56] VITALS: BMI 28.3
== END | disposition home or self-care (01) ==
LOC: D.MRI 09:19
PROVIDERS: ATTEND Family Medicine
DX: M19.072 Primary osteoarthritis, left ankle and foot (principal)